=== PATIENT | male | born 1955 ===

== ENCOUNTER 2018-01-30 11:25 | Emergency (ER) | payer BC ==
[~2018-01-30] VITALS: Ht 175.3 cm; Wt 95.3 kg
--- NOTE | 2018-01-30 11:45 | NUR ---
Per pt's request called and left message for pt's (Marisa) at [phone].
--- NOTE | 2018-01-30 11:46 | NUR ---
Dr Carlos at the bedside for MSE.
[2018-01-30] MEDS ORDERED: HYDR-4077 PO (11:55)
[2018-01-30] MEDS ORDERED: SITA100T PO (11:55)
[2018-01-30] MEDS ORDERED: ROSU10TA PO (12:08)
[2018-01-30] MEDS ORDERED: CARV3.122 PO (12:08)
[2018-01-30] MEDS ORDERED: FURO20TA4 PO (12:08)
[2018-01-30 12:26] LABS: BASOPHILS % (AUTO) 0.4 % (0.0-2.0); EOSINOPHILS # (AUTO) 0.2 K/uL (0.0-0.7); EOSINOPHILS % (AUTO) 2.9 % (0.0-7.0); HEMATOCRIT 31.8 % (36.7-47.1); HEMOGLOBIN 10.5 g/dL (12.5-16.3); LYMPHOCYTES # (AUTO) 0.3 K/uL (20.0-40.0); LYMPHOCYTES % (AUTO) 3.8 % (20.5-51.5); MEAN CORPUSCULAR HEMOGLOBIN 27.7 uug (23.8-33.4); MEAN CORPUSCULAR HGB CONC 33 g/dL (32.5-36.3); MEAN CORPUSCULAR VOLUME 83.6 fL (73.0-96.2); MONOCYTES # (AUTO) 0.5 K/uL (2.0-10.0); MONOCYTES % (AUTO) 5.9 % (0.0-11.0); PLATELET COUNT (AUTO) 213 K/uL (152-348); RED BLOOD CELL COUNT(AUTO) 3.81 MIL/uL (4.06-5.63); WHITE BLOOD COUNT (AUTO) 8.1 K/uL (3.6-10.2)
[2018-01-30 12:27] LABS: CREATININE 2.4 mg/dL (0.6-1.3); POTASSIUM 4.1 mmol/L (3.5-5.1)
[2018-01-30 12:33] LABS: BILIRUBIN,DIRECT 0.3 mg/dL (0.0-0.2); BILIRUBIN,TOTAL 0.9 mg/dL (0.2-1.0); TOTAL PROTEIN, SERUM 5.7 g/dL (6.4-8.2)
--- NOTE | 2018-01-30 12:41 | NUR ---
ELMER REID TALKING TO DR. SANDOVAL FOR CARDIOLOGY CONSULT.
--- NOTE | 2018-01-30 13:01 | NUR ---
CALLED [employer] TO REQUEST [employer] INTERROGATION AT [phone]
--- NOTE | 2018-01-30 13:11 | NUR ---
CALLED [facility] AND TALKED TO KEYANA TO TRANSFER THE PT PER PT OMD, DR. ADILSON MCKEON.
--- NOTE | 2018-01-30 13:12 | NUR ---
ER spoke to Dr Brown(Radiologist), regarding Pt's CT of head.
--- NOTE | 2018-01-30 13:12 | NUR ---
CALLED [facility], TRIP NUMBER [id number], ETA 45 MINUTES
--- NOTE | 2018-01-30 14:02 | NUR ---
[employer] AT BEDSIDE.
--- NOTE | 2018-01-30 14:04 | NUR ---
HAD TO MOVE THE [facility] FOR LATER DUE TO [facility] PENDING ACCEPTANCE
--- NOTE | 2018-01-30 14:10 | NUR ---
YULY FROM [facility] TALKING TO DR. ARBOLEDA
[2018-01-30] MEDS ORDERED: FENTANYL CITRATE 100 MCG/2 ML AMPUL ONE ×2 (14:24→16:31)
[2018-01-30] MEDS ORDERED: FENTANYL CITRATE 100 MCG/2 ML AMPUL IV ONE ×2 (14:30→16:15)
--- NOTE | 2018-01-30 14:30 | NUR ---
CALLED [facility] TO FOLLOW UP. CASE STILL PENDING
--- NOTE | 2018-01-30 14:33 | NUR ---
HANDS OFF REPORT GIVEN TO MARYLIN PERALES
--- NOTE | 2018-01-30 14:38 | NUR ---
TELESTROKE CALLED [employer] DR VIVEROS. SPOKE WITH JARROD.
--- NOTE | 2018-01-30 15:00 | NUR ---
DR VIVEROS SPOKE DR ARBOLEDA. WILL TRANSFER TO [facility]
--- NOTE | 2018-01-30 15:10 | NUR ---
ASSUMED PT CARE.
--- NOTE | 2018-01-30 15:50 | NUR ---
[facility] called and talked to dr. farfan, accepting the pt.
--- NOTE | 2018-01-30 16:14 | NUR ---
gave report to suzanne at [facility]
--- NOTE | 2018-01-30 16:30 | NUR ---
PT TRANSFERED TO [facility] TO ROOM [id number] IN STABLE CONDITION.
== END 2018-01-30 16:41 | disposition short-term general hospital (02) ==
LOC: ER 11:29
DX: S49.91XA Unspecified injury of right shoulder and upper arm, initial encounter (principal); S09.90XA Unspecified injury of head, initial encounter; S79.911A Unspecified injury of right hip, initial encounter; I63.9 Cerebral infarction, unspecified; R55 Syncope and collapse; R79.89 Other specified abnormal findings of blood chemistry; I10 Essential (primary) hypertension; E11.9 Type 2 diabetes mellitus without complications; Z95.0 Presence of cardiac pacemaker; W01.198A Fall on same level from slipping, tripping and stumbling with subsequent striking against other object, initial encounter; Y93.89 Activity, other specified; Y92.89 Other specified places as the place of occurrence of the external cause; Y99.8 Other external cause status
CPT/HCPCS: 36415; 70450; 71045; 73030; 73502; 80048; 80076; 84484; 85025; 85730; 93005; 96374; 96376; 99285; A4663; J3010 ×2; 70030-TC